=== PATIENT | female | born 1980 | race Caucasian/White ===

== ENCOUNTER 2018-09-28 21:45 | Inpatient (IN) | payer BC ==
[~2018-09-28] VITALS: Ht 157.5 cm; Wt 81.6 kg
--- NOTE | 2018-09-28 21:45 | NUR ---
2145 - ER at bedside examining patient.
--- NOTE | 2018-09-28 21:45 | NUR ---
2145 - Patient to ER bed 8 to gown for evaluation. Side rails up. C/o epigastric pain that came on suddenly, while making dinner, radiates up. Dull. 01/02. A&OX4, appears anxious, resp even. Speaking in full, clear sentences
[2018-09-28 21:51] VITALS: BP_SYST 131
[2018-09-28] MEDS ORDERED: MAG HYDROX/AL HYDROX/SIMETH 30 ML, BELLADONNA ALKALOIDS/PHENOBARB 10 ML, LIDOCAINE VISC... PO ONE ×3 (22:00)
[2018-09-28 22:07] LABS: BASOPHILS # (AUTO) 0.1 K/uL (0.0-0.2); BASOPHILS % (AUTO) 0.7 % (0.0-2.0); EOSINOPHILS # (AUTO) 0.4 K/uL (0.0-0.4); EOSINOPHILS % (AUTO) 3.9 % (0.0-4.0); HEMATOCRIT 38.4 % (36-48); HEMOGLOBIN 12.7 g/dL (12.0-16.0); LYMPHOCYTES # (AUTO) 4.5 K/uL (1.0-5.5); LYMPHOCYTES % (AUTO) 46.7 % (20.5-51.5); MEAN CORPUSCULAR HEMOGLOBIN 28 pg (27-31); MEAN CORPUSCULAR HGB CONC 33 % (32-36); MEAN CORPUSCULAR VOLUME 85 fL (79.0-98.0); MONOCYTES # (AUTO) 0.6 K/uL (0.0-1.0); MONOCYTES % (AUTO) 6.7 % (1.7-9.3); NEUTROPHILS # (AUTO) 4.1 K/uL (1.8-7.7); PLATELET COUNT (AUTO) 396 K/uL (130-430); RED BLOOD CELL COUNT(AUTO) 4.55 MIL/uL (4.2-6.2); RED CELL DISTRIBUTION WIDTH 13.1 % (9.0-15.0); WHITE BLOOD COUNT (AUTO) 9.7 K/uL (4.8-10.8)
[2018-09-28] MEDS ORDERED: MORPHINE 4 MG/ML INJ. SYRINGE IVP ONE (22:15)
--- NOTE | 2018-09-28 22:30 | NUR ---
2230 - pt reports pain decreased slightly. Will be medicated w/ ativan. awaiting results.
[2018-09-28 22:34] LABS: ANION GAP 8 (5-15); CALCIUM 8.7 mg/dL (8.4-11.0); CHLORIDE 105 mmol/L (98-107); CREATININE 0.82 mg/dL (0.55-1.30); GLUCOSE 114 mg/dL (70-99); POTASSIUM 3.3 mmol/L (3.5-5.1); SODIUM SERUM 138 mmol/L (136-145); UREA NITROGEN, BLOOD 13 mg/dL (8-21)
[2018-09-28 22:41] LABS: GFR AFRICAN AMERICAN 100 mL/min (>90)
[2018-09-28 22:45] LABS: ALANINE AMINOTRANSFERASE 22 U/L (12-78); ALBUMIN 3.4 g/dL (3.4-4.8); ASPARTATE AMINOTRANSFERASE 20 U/L (10-37)
[2018-09-28] MEDS ORDERED: LORazepam 1 MG TABLET PO ONE (22:45)
[2018-09-28 22:51] LABS: LIPASE 8764 U/L (73-393)
[2018-09-28 22:59] LABS: TOTAL BILIRUBIN < 0.1 mg/dL (0.0-1.0)
[2018-09-28] MEDS ORDERED: NACL 0.9% 1,000 ML IV ONE (23:00)
[2018-09-28] MEDS ORDERED: PIPERACILLIN/TAZO 3.375 GM in NS 50 ML IV ONE (23:00)
--- NOTE | 2018-09-28 23:09 | NUR ---
2309 - IV established, blood cultures and lactic drawn, IV fluids started. Pt reports feeling much better after Ativan PO
[2018-09-28] MEDS ORDERED: PIPERACILLIN/TAZOBACTAM 3.375 GM/VIAL (ZOSYN) IV ONE (23:28)
--- NOTE | 2018-09-28 23:40 | NUR ---
2340 - US at bedside
[2018-09-28 23:50] LABS: BILIRUBIN,URINE NEGATIVE (NEGATIVE); BLOOD, URINE NEGATIVE (NEGATIVE); CLARITY/URINE CLEAR (CLEAR); COLOR,URINE YELLOW (YELLOW); GLUCOSE,URINE NEGATIVE (NEGATIVE); KETONES,URINE NEGATIVE (NEGATIVE); LEUKOCYTE ESTERASE ,URINE TRACE (NEGATIVE); NITRITE, URINE NEGATIVE (NEGATIVE); PH,URINE 6.5 (5.0-8.0); PROTEIN URINE NEGATIVE (NEGATIVE)
[2018-09-29 00:04] LABS: BACTERIA,URINE MODERATE /HPF (None Seen); RBC,URINE 0-3 /HPF (0-3)
[2018-09-29] MEDS ORDERED: SERT25TA PO (00:20)
[2018-09-29] MEDS ORDERED: ONDANSETRON HCL 4 MG/2 ML VIAL IVP PRN (00:30)
[2018-09-29] MEDS ORDERED: MORPHINE 4 MG/ML INJ. SYRINGE IVP PRN ×2 (00:30→07:45)
[2018-09-29] MEDS ORDERED: MORPHINE 2 MG/ML INJ. SYRINGE IVP PRN (00:30)
[2018-09-29] MEDS ORDERED: D5NS 1,000 ML IV ONE (00:30)
--- NOTE | 2018-09-29 00:40 | NUR ---
0040 - Patient will be admitted to care of VIRGILIO Melara. Admitted to med/surg unit. Will go to room 135. Belongings list completed. Summary report printed. Report given over phone to VIRGILIO Melara.
--- NOTE | 2018-09-29 00:58 | NUR ---
ADMISSION NOTE Received patient from ER via gurney. Patient admitted with diagnosis of Gallstones, Pancreatitis. Patient is awake, alert, oriented X . Patient oriented to hospital room, call light, toileting, pain management and safety-teach back done. Patient informed that will be nurse and that their room number is . Personal belongings checked and Belongings List documented. Call light within reach. Addendum: 09/29/18 at 0129 by Harris Cunha RN Patient informed that VIRGILIO Starks will be primary nurse and that their room number is [id number]
[2018-09-29 01:02] VITALS: BP_SYST 114
--- NOTE | 2018-09-29 01:15 | NUR ---
PHYSICAL ASSESSMENT DONE. IVF INITIATED. DENIES PAIN AND SOB THIS TIME.
--- NOTE | 2018-09-29 03:00 | NUR ---
ROUNDS: PATIENT SLEEPING SOUNDLY WITH SNORE THIS TIME. CALL LIGHT WITHIN REACH.
--- NOTE | 2018-09-29 05:38 | NUR ---
CONSULT: CONSULT CALLED FOR DR. WERNER I SPOKE WITH JACKIE AKERS REASON FOR THE CONSULT: GALLSTONE/ PANCREATITIS REQUESTING CONSULT: DR. GARDUNO
--- NOTE | 2018-09-29 05:40 | NUR ---
surgical consult: DR. WERNER ,CALLED BACK. REPORTED PATIENT CURRENT CONDITIONS.
--- NOTE | 2018-09-29 07:20 | NUR ---
PAGED PAGED ARMANDO GODWIN AT [phone] SPOKE WITH ITALIA.
--- NOTE | 2018-09-29 07:25 | NUR ---
CALLED DR. GARDUNO TO CLARIFY MORPHINE ORDERS. WITH ORDERS.
--- NOTE | 2018-09-29 07:30 | NUR ---
CLOSING: SLEPT AT LONG INTERVALS. FELT PAIN THIS AM. MEDICATED WITH MORPHINE 2MG IV. VOIDED FREELY. IVF INFUSING AT 150ML/HR. .NO ACUTE DISTRESS.
[2018-09-29 08:00] VITALS: BP_SYST 114
--- NOTE | 2018-09-29 08:00 | NUR ---
initial notes rec patient asleep but arousable to stimuli. ivf infusing well , no infiltration noted. bed to the lowest position . bed to the lowest position and side rails up and locked. call light within reached and knows when to call for assistance.
[2018-09-29] MEDS: D5NS 1,000 ML IV SCH ×3 (09:39→21:35)
--- NOTE | 2018-09-29 10:00 | NUR ---
rounds sleeping at intervals. no sob noted. call light within reached.
[2018-09-29 11:18] LABS: CALCIUM 7.8 mg/dL (8.4-11.0); CREATININE 0.62 mg/dL (0.55-1.30); POTASSIUM 3.9 mmol/L (3.5-5.1)
[2018-09-29 11:25] LABS: TOTAL BILIRUBIN 0.3 mg/dL (0.0-1.0)
[2018-09-29] MEDS: MORPHINE 4 MG/ML INJ. SYRINGE IVP PRN (12:40)
--- NOTE | 2018-09-29 14:00 | NUR ---
rounds asleep when rounds made. dr galeas callded and informed re lipase.
--- NOTE | 2018-09-29 16:00 | NUR ---
rounds pt has episode of vomiting after eating clear liquids.
[2018-09-29 16:42] VITALS: BP_SYST 109
--- NOTE | 2018-09-29 18:45 | NUR ---
closing notes seen by dr galeas at bedside and talked with family. no sob noted.
[2018-09-29 19:10] VITALS: BP_SYST 110
--- NOTE | 2018-09-29 19:10 | NUR ---
OPENING NOTE RECEIVED ENDORSEMENT REPORT FROM DAY NURSE PARISA AT BEDSIDE. PT AOX4. NO SOB NOTED. NO DISTRESS NOTED. CHEST RISE EVEN AND UNLABORED. FAMILY AT BEDSIDE. NO S/S OF PAIN NOTED. PT DENIES PAIN AT THIS TIME. IV ON RIGHT AC 20G. IV CLEAN, DRY, PATENT AND INTACT. IVF INFUSING AT ORDERED RATE. ORIENTED PT TO HOSPITAL ROOM AND HOW TO USE ROOM PHONE AND CALL LIGHT TO CALL FOR ASSISTANCE. PT VERBALIZED UNDERSTANDING. SAFETY MEASURES IN PLACE. CALL LIGHT/ROOM PHONE WITHIN REACH, BED ALARM ON, BED WHEELS LOCKED, SIDE RAILS UP X2, BEDSIDE TABLE WITHIN REACH. NO OTHER NEEDS AT THIS TIME. WILL CONTINUE TO MONITOR PT AND CONTINUE PT'S POC.
--- NOTE | 2018-09-29 20:10 | NUR ---
RN ROUNDS PT RESTING IN BED WITH EYES OPENED. NO SOB NOTED. NO DISTRESS NOTED. CHEST RISE EVEN AND UNLABORED. NO S/S OF PAIN NOTED. PT DENIES PAIN AT THIS TIME. IVF INFUSING AT ORDERED RATE. SAFETY MEASURES IN PLACE. NO OTHER NEEDS AT THIS TIME. WILL CONTINUE TO MONITOR PT AND CONTINUE PT'S POC.
[2018-09-29] MEDS: cefTRIAXone 1 GM in D5W 50 ML IV SCH (21:35)
[2018-09-29] MEDS ORDERED: cefTRIAXone 1 GM IVPB PREMIX 50 ML IV ONE (21:38)
--- NOTE | 2018-09-29 21:45 | NUR ---
RN ROUNDS PT RESTING IN BED. NO SOB NOTED. NO DISTRESS NOTED. CHEST RISE EVEN AND UNLABORED. NO S/S OF PAIN NOTED. PT DENIES PAIN AT THIS TIME. IVF INFUSING AT ORDERED RATE. SCHEDULED MEDICATIONS ADMINISTERED ORDERED. NO OTHER NEEDS AT THIS TIME. SAFETY MEASURES IN PLACE. WILL CONTINUE TO MONITOR PT AND CONTINUE PT'S POC.
--- NOTE | 2018-09-29 23:35 | NUR ---
RN ROUNDS PT RESTING IN BED WITH EYES CLOSED. NO SOB NOTED. NO DISTRESS NOTED. CHEST RISE EVEN AND UNLABORED. NO S/S OF PAIN NOTED. SAFETY MEASURES IN PLACE. WILL CONTINUE TO MONITOR PT AND CONTINUE PT'S POC.
[2018-09-30] VITALS (9 sets, daily range): BP systolic 102–125
[2018-09-30] MEDS: D5NS 1,000 ML IV SCH ×3 (04:29→17:43)
--- NOTE | 2018-09-30 06:30 | NUR ---
CLOSING NOTE PT RESTING IN BED COMFORTABLY. NO SOB NOTED. NO DISTRESS NOTED. CHEST RISE EVEN AND UNLABORED. NO S/S OF PAIN NOTED AT THIS TIME. IVF INFUSING AT ORDERED RATE. PT'S PAIN MANAGED THROUGHOUT SHIFT. ALL NEEDS MET THROUGHOUT SHIFT. SAFETY MEASURES IN PLACE THROUGHOUT SHIFT. CALL LIGHT/ROOM PHONE WITHIN REACH, BED ALARM ON, BED WHEELS LOCKED, SIDE RAILS UP X2, BEDSIDE TABLE WITHIN REACH. NO NEEDS AT THIS TIME. WILL ENDORSE PT REPORT TO DAY NURSE AT BEDSIDE.
[2018-09-30 06:33] LABS: BASOPHILS % (AUTO) 0.6 % (0.0-2.0); EOSINOPHILS # (AUTO) 0.2 K/uL (0.0-0.4); EOSINOPHILS % (AUTO) 3.1 % (0.0-4.0); HEMATOCRIT 34.4 % (36-48); HEMOGLOBIN 11.4 g/dL (12.0-16.0); LYMPHOCYTES # (AUTO) 2.4 K/uL (1.0-5.5); LYMPHOCYTES % (AUTO) 30.6 % (20.5-51.5); MEAN CORPUSCULAR HEMOGLOBIN 28 pg (27-31); MEAN CORPUSCULAR HGB CONC 33 % (32-36); MEAN CORPUSCULAR VOLUME 85 fL (79.0-98.0); MONOCYTES # (AUTO) 0.5 K/uL (0.0-1.0); NEUTROPHILS # (AUTO) 4.5 K/uL (1.8-7.7); NEUTROPHILS % (AUTO) 58.7 % (40.0-70.0); PLATELET COUNT (AUTO) 315 K/uL (130-430); RED BLOOD CELL COUNT(AUTO) 4.06 MIL/uL (4.2-6.2); RED CELL DISTRIBUTION WIDTH 13.5 % (9.0-15.0); WHITE BLOOD COUNT (AUTO) 7.7 K/uL (4.8-10.8)
[2018-09-30 07:00] LABS: ALBUMIN 2.6 g/dL (3.4-4.8); CALCIUM 7.9 mg/dL (8.4-11.0); CREATININE 0.59 mg/dL (0.55-1.30); POTASSIUM 3.7 mmol/L (3.5-5.1); TOTAL BILIRUBIN 0.3 mg/dL (0.0-1.0)
--- NOTE | 2018-09-30 07:25 | NUR ---
AM rounds Patient resting in bed A/O x 4, No SOB, no complaints of pain. Lung sounds clear. Patient in stable condition at this time. SD Addendum: 09/30/18 at 0955 by Bakari Villegas RN Disregard note, saved in error
--- NOTE | 2018-09-30 07:25 | NUR ---
AM rounds Patient resting in bed A/O x 4, No SOB, no complaints of pain. Lung sounds clear. Patient in stable condition at this time. Safety prev Addendum: 09/30/18 at 0955 by Bakari Villegas RN Disregard note, saved in error
--- NOTE | 2018-09-30 07:25 | NUR ---
AM rounds Patient resting in bed A/O x 4, No SOB, no complaints of pain. Lung sounds clear. Patient in stable condition at this time. IV patent and intact, Fluids running per MD order, no signs of infiltration. Safety precautions in place, call light within reach, side rail x2, wheels locked. No needs at this time, will continue to monitor.
--- NOTE | 2018-09-30 07:45 | NUR ---
Spoke to Dr. Burgos Spoke to Dr. Burgos, made aware of lipase results. Orders received regarding diet, orders to be entered by RN.
--- NOTE | 2018-09-30 12:00 | NUR ---
Rounds Patient resting in bed, no SOB, no complaints of pain. IV in place, and infusing as ordered, no adverse effects noted. Patient NPO as ordered.
--- NOTE | 2018-09-30 16:36 | NUR ---
Rounds Patient sitting up in bed, no complaints of pain, no SOB. IV patent, and infusing fluids as ordered. No adverse effects noted. Patient resting comfortably in bed. Call light within reach. Will continue to monitor
--- NOTE | 2018-09-30 18:41 | NUR ---
Closing notes Patient resting in bed,No SOB, no complaints of pain.IV patent and intact, Fluids running per MD order, no signs of infiltration. Safety precautions in place, call light within reach, side rail x2, wheels locked. All needs met at thus time. Patient in stable condition.
[2018-09-30] MEDS ORDERED: ONDANSETRON HCL 4 MG/2 ML VIAL IVP PRN (18:45)
[2018-09-30] MEDS ORDERED: KETOROLAC TROMETHAMINE 30 MG VIAL IVP PRN (18:45)
[2018-09-30] MEDS ORDERED: fentaNYL CITRATE/PF 100 MCG/2 ML AMP IVP PRN ×2 (18:45)
--- NOTE | 2018-09-30 19:35 | NUR ---
Initial Note Received patient awake, alert and oriented. Family at the bedside. No SOB noted. Denies any pain or n/v at this time. IVF infusing. NPO for surgery today at 2100. Skin intact and no peripheral edema noted. Self reposition. Care and monitoring will be provided per protocol. Call light within reach. Bed alarm off per patient's request. Bed at lowest position at all times. Needs attended. Kept warm and comfortable. Patient aware of the procedure and she has questions for Dr. Burgos before she signs the surgery consent. VS stable.
--- NOTE | 2018-09-30 20:18 | NUR ---
Transfer to OR Patient was transferred to OR and approached by Dr. Burgos. Made MD aware of the latest VS and last IV antibiotic. Scheduled IV antibiotic at 2100 was in OR already. Patient is not in distress at this time. Endorsed to [employer]. Saline lock.
[2018-09-30] MEDS ORDERED: IOHEXOL 50 ML IV ONE (20:52)
[2018-09-30] MEDS: cefTRIAXone 1 GM in D5W 50 ML IV SCH (21:00)
[2018-09-30] MEDS ORDERED: fentaNYL CITRATE/PF 100 MCG/2 ML AMP ONE (21:45)
[2018-09-30] MEDS ORDERED: ROCURONIUM BROMIDE 10 MG/ML (ZEMURON) ONE (21:45)
[2018-09-30] MEDS ORDERED: MIDAZOLAM HCL 5 MG/ML VIAL (VERSED) IV ONE (21:45)
[2018-09-30] MEDS ORDERED: ONDANSETRON HCL 4 MG/2 ML VIAL ONE (21:45)
[2018-09-30] MEDS ORDERED: LR 1,000 ML IV.SOLN IV ONE (21:45)
[2018-09-30] MEDS ORDERED: GLYCOPYRROLATE 0.2 MG/ML VIAL ONE (21:45)
[2018-09-30] MEDS ORDERED: SEVOFLURANE 15 MIN GAS INH ONE (21:45)
[2018-09-30] MEDS ORDERED: PROPOFOL 200MG/ 20ML VIAL (DIPRIVAN) IV ONE (21:45)
[2018-09-30] MEDS ORDERED: HYDROcodone/ACETAMIN 5-325 MG TAB (NORCO/ VICODIN) PO PRN (21:45)
[2018-09-30] MEDS ORDERED: KETOROLAC TROMETHAMINE 30 MG VIAL ONE (21:45)
[2018-09-30] MEDS ORDERED: NEOSTIGMINE METHYLSULFATE 1 MG/ML, 10 ML VIAL ONE (21:45)
--- NOTE | 2018-09-30 22:20 | NUR ---
Transfer to [place] Patient is transferred from PACU and back to her room. Patient's son at the bedside. Patient is arousable, alert, oriented and feels tired. VS stable. On O2 at 3L/min via NC wit 96%. SCDs o BLE. Lap harjit sites x4 dressings are CDI. Encouraged to use Incentive spirometer and educated patient's son as well. Will continue to monitor. Post op VS will be taken as well. Clear liquid diet.
--- NOTE | 2018-09-30 23:00 | NUR ---
VS Stable 15 mins x3 Patient sleeping but arousable. VS stable 15 minutes x3 after arrival to the unit. Encouraged to deep breath and cough. Patient used Incentive spirometer and able to reach 1000ml at this time. Encouraged to use it more often. Lap sites dressings x4 are CDI.
[2018-10-01] VITALS (10 sets, daily range): BP systolic 100–125
--- NOTE | 2018-10-01 00:40 | NUR ---
Pain Med/VS stable 30 mins x 3 Patient awake and alert. Complain of incisional pain, medicated for pain as requested. Encouraged to deep breath and cough. Used incentive spirometer several times. Repositioned. Kept warm and comfortable.
[2018-10-01] MEDS: D5NS 1,000 ML IV SCH ×5 (03:21→18:18)
--- NOTE | 2018-10-01 03:30 | NUR ---
Ambulates/VS stable 1 hr x 3 Patient awake and alert. Ambulated to the bathroom and back to bed with supervision and steady gait . Lap sites dressings are CDI. Feels pain only upon movement. Given juice, tolerated well. Denies any SOB or n/v a this time. IVF infusing. SCDs. PAtient burped several times and hasn't pass gas yet. Kept warm and comfortable.
--- NOTE | 2018-10-01 06:31 | NUR ---
End Note Afebrile. VS stable. Medicated for pain once after the procedure. No complain of SOB or n/v throughtout the shift. Able to ambulate to the bathroom once without any difficulty. Lap sites x 4 dressings are CDI, no bleeding noted. Tolerateed juice and water. Encouraged to use the Incentive spirometer at 1000ml and to cough and deep breath. IVF infusing. SCDs. AM labs today. Care and monitoring provided per protocol. Call light within reach. Bed alarm off per patient's request. Bed at lowest position at all times. Needs attended. Kept warm and comfortable.
[2018-10-01 06:44] LABS: CALCIUM 7.7 mg/dL (8.4-11.0); CREATININE 0.73 mg/dL (0.55-1.30); POTASSIUM 3.4 mmol/L (3.5-5.1)
[2018-10-01 06:58] LABS: ALBUMIN 2.7 g/dL (3.4-4.8); TOTAL BILIRUBIN 0.2 mg/dL (0.0-1.0)
--- NOTE | 2018-10-01 07:45 | NUR ---
am rounds: Oriented x4. Voided with 400 ml of yellow urine, no sediments noted. Complained of gas pain the mid upper abdomen. Patient is able to burp. Instructed patient to increase ambulation to help with the gas pain. Sitting up on the chair for breakfast, encouraged to continue using the incentive spirometer.
--- NOTE | 2018-10-01 08:45 | NUR ---
Activity: Ambulated in the hallway ([facility]) with steady gait. Denied dizziness, nor nausea. Patient made aware that ambulation will help with the gas pain.
[2018-10-01] MEDS ORDERED: SERTRALINE HCL 50 MG TABLET PO SCH (09:00)
[2018-10-01] MEDS: MORPHINE 4 MG/ML INJ. SYRINGE IVP PRN (09:24)
--- NOTE | 2018-10-01 11:17 | NUR ---
MD communication: Spoke with Dr. Burgos, updated on patient's status. Will advance diet as tolerated.
--- NOTE | 2018-10-01 13:30 | NUR ---
Rounds Patient sitting up in bed at this time. No complaints of pain. Stated she tolerated lunch well, no cough, no nausea, no vomiting. Educated teaching on importance of incentive spirometer and walking. Patient verbalized understanding, and returned demonstration.
--- NOTE | 2018-10-01 15:20 | NUR ---
Rounds: Pain is 3/10, tolerable for the patient. encouraged to continue ambulating in the hallway and continue using the incentive spirometer.
--- NOTE | 2018-10-01 17:50 | NUR ---
Ambulating Supervised patient to ambulate from [facility] to [facility]. No complaints of pain, no dizziness. Educated patient to use the incentive spirometer, patient verbalized understanding and return demonstrated.
--- NOTE | 2018-10-01 18:27 | NUR ---
Closing note Patient sitting up in bed, eating dinner, tolerating well at this time, no nausea, no vomiting. Reminded patient to continue to use the inceptive spirometer and ambulate, patient verbalized understanding. No complaints of pain. Call light within reach, All need met at this time.
--- NOTE | 2018-10-01 19:00 | NUR ---
Diet: Tolerated soft diet for dinner, no abdominal pain. Wants to go home. Paged Dr. Burgos, he'll be here to see the patient.
--- NOTE | 2018-10-01 19:30 | NUR ---
INITIAL NOTES: PT IS ALERT AND ORIENTED ; NOT IN ANY ACUTE DISTRESS; PER REPORT DR WERNER WILL MAKE ROUNDS IN 30 MIN AFTER THAT PT CAN BE DCD ; ASSESSMENT NONE , PT IS COMFORTABLE ; PT DENIED ANY PAIN OR SOB OR NAUSEA ; PT HAS I.S AT BED SIDE ; CALL [place] IN REACH ; ENCOURAGED PT TO CALL IF SHE NEEDS ANY HELP ; WILL CONTINUE TO MONITOR PT .
[2018-10-01] MEDS ORDERED: HYDR-4272 PO (19:45)
--- NOTE | 2018-10-01 20:00 | NUR ---
MD ROUNDS: DR WERNER MADE ROUNDS, MD OPENED THE DRESSING AND STERI STIP IS IN PLACE , DRESSING TO THE UMBILICAL SITE NOTED WITH DRY BLOOD , MD PLACED A BANDAGE ON IT ALL OTHER THREE INCISION SITE IS OPEN ; BUT STERI STRIPS IS ON ; MD GAVE DETAILED INSTRUCTION ON SHOWER , PAIN MANAGEMENT AND FOLLOW UP , ALSO MD INFORMED PT NOT TO LIFT ANY WEIGH MORE THAT 10 LBS ; MD ORDERED TO DC PT TONIGHT AFTER THE ROCEPHIN IVPB .
[2018-10-01] MEDS: cefTRIAXone 1 GM in D5W 50 ML IV SCH (20:15)
--- NOTE | 2018-10-01 20:20 | NUR ---
MEDICATION : DUE IV ANTIBIOTIC ROCEPHIN IS INFUSING WELL ; PT NOTIFIED FAMILY ALREADY TO PICK HER UP
--- NOTE | 2018-10-01 21:00 | NUR ---
DC INSTRUCTION: Patient given medication reconciliation form and D/C instructions. Exit Care provided. Patient verbalized understanding. discussed with patient the results and treatment provided. PT is waiting for her ride .
--- NOTE | 2018-10-01 21:40 | NUR ---
DISCHARGE: Patient given medication reconciliation form and D/C instructions. Exit Care provided. Patient verbalized understanding. MD discussed with patient the results and treatment provided. Ambulatory with steady gait for discharge to home. Patient in stable condition, ID band removed. IV catheter removed, intact and dressing applied, no active bleeding. Patient educated on pain management. All belongings sent with patient. DR WERNER told pt that he will do [facility] prescription directly to the pharmacy . since pt stated she is not going to get the medication tonight , she is fine . informed pt if she cannot pickup her medication from pharmacy please contact DR ROBINS office in am ,
== END 2018-10-01 21:40 | disposition home or self-care (01) | DRG 417 ==
LOC: SED 21:45 → SMU 09-29 00:23
PROVIDERS: ADMIT Internal Medicine Hospice and Palliative Medicine; ATTEND Internal Medicine Hospice and Palliative Medicine
PROC: BF131ZZ Fluoroscopy of Gallbladder and Bile Ducts using Low Osmolar Contrast (ICD-10-PCS; 2018-09-30)
PROC: 0FT44ZZ Resection of Gallbladder, Percutaneous Endoscopic Approach (ICD-10-PCS; principal; 2018-09-30 19:00)
DX: K80.10 Calculus of gallbladder with chronic cholecystitis without obstruction (principal); K85.10 Biliary acute pancreatitis without necrosis or infection; E87.6 Hypokalemia; Z79.899 Other long term (current) drug therapy; Z98.51 Tubal ligation status
CPT/HCPCS: 36415; 71045; 76000; 76700-TC; 80053; 80061; 81000-TC; 82150-TC; 83605; 83690-TC; 84484; 85025; 87040-TC; 87081; 87086; 88302; 88304; 93005; 96365; 99285; C1727; J0696; J1885; J2001; J2250; J2270; J2405; J2543; J2704; J2710; J3010; J3490; J7042; J7060; J7120; Q9967

== ENCOUNTER 2021-04-09 11:43 | Emergency (ER) | payer BC ==
[~2021-04-09] VITALS: Ht 160 cm; Wt 90.7 kg
[~2021-04-09 11:43] MED LIST: HYDR-4272 PO; SERT25TA PO
--- NOTE | 2021-04-09 11:45 | NUR ---
Placed in room 2 . Placed on school bus monitor, blood pressure machine and pulse oximeter. To gown for exam. Side rails up. Report given to Terra.
[2021-04-09 11:50] VITALS: BP_SYST 157
--- NOTE | 2021-04-09 12:11 | NUR ---
Patient awake, alert and oriented to person, place, time and situation. Reporting chest pain across chest and down left side 01/02. EKG done upon triage. No SOB reported. Reports no PMH and NKDA. Will continue to monitor.
--- NOTE | 2021-04-09 13:36 | NUR ---
Pt resting in bed; no acute distress noted. VSS; awaiting further orders. Will continue to monitor.
--- NOTE | 2021-04-09 13:50 | NUR ---
Dr Alexander at bedside to evaluate patient.
[2021-04-09] MEDS ORDERED: ONDANSETRON HCL 4 MG/2 ML VIAL IVP ONE (14:00)
[2021-04-09] MEDS ORDERED: MAG HYDROX/AL HYDROX/SIMETH 30 ML, DICYCLOMINE HCL 20 MG, LIDOCAINE VISCOUS 2% 15ML (PO... PO ONE ×3 (14:00)
--- NOTE | 2021-04-09 14:10 | NUR ---
CXR done at bedside
[2021-04-09 14:30] LABS: BASOPHILS # (AUTO) 0.1 K/uL (0.0-0.2); BASOPHILS % (AUTO) 1.2 % (0.0-2.0); EOSINOPHILS # (AUTO) 0.1 K/uL (0.0-0.4); EOSINOPHILS % (AUTO) 1.1 % (0.0-4.0); HEMATOCRIT 33.5 % (36-48); HEMOGLOBIN 10.8 g/dL (12.0-16.0); LYMPHOCYTES # (AUTO) 1.8 K/uL (1.0-5.5); LYMPHOCYTES % (AUTO) 15.7 % (20.5-51.5); MEAN CORPUSCULAR HEMOGLOBIN 23 pg (27-31); MEAN CORPUSCULAR HGB CONC 32 % (32-36); MEAN CORPUSCULAR VOLUME 70 fL (79.0-98.0); MONOCYTES # (AUTO) 0.8 K/uL (0.0-1.0); MONOCYTES % (AUTO) 7.2 % (1.7-9.3); NEUTROPHILS # (AUTO) 8.5 K/uL (1.8-7.7); NEUTROPHILS % (AUTO) 74.8 % (40.0-70.0); PLATELET COUNT (AUTO) 332 K/uL (130-430); RED BLOOD CELL COUNT(AUTO) 4.78 MIL/uL (4.2-6.2); RED CELL DISTRIBUTION WIDTH 16.1 % (9.0-15.0); WHITE BLOOD COUNT (AUTO) 11.3 K/uL (4.8-10.8)
[2021-04-09 14:47] LABS: CALCIUM 9.2 mg/dL (8.4-11.0); CREATININE 0.65 mg/dL (0.55-1.30); POTASSIUM 3.9 mmol/L (3.5-5.1)
[2021-04-09 14:52] LABS: ALBUMIN 3.7 g/dL (3.4-4.8); TOTAL BILIRUBIN 0.3 mg/dL (0.0-1.0)
--- NOTE | 2021-04-09 17:23 | NUR ---
Per Dr Santo, no 3rd EKG needed. 2 EKG's already done. Spoke with lab to confirm second troponin was done. Pt awaiting further dispo.
--- NOTE | 2021-04-09 18:27 | NUR ---
Dr Santo aware patient's second trop negative; awaiting discharge.
[2021-04-09] MEDS ORDERED: FAMO-132 PO (18:39)
--- NOTE | 2021-04-09 19:05 | NUR ---
Report given to Candelario POOLE.
[2021-04-09 19:11] LABS: HCG,QUANTITATIVE 0 mIU/ML (0-6); LIPASE 51 U/L (73-393)
--- NOTE | 2021-04-09 19:31 | NUR ---
REPEAT EKG DONE AND GIVEN TO DR CROCKER FOR INTERPRETATION
--- NOTE | 2021-04-09 19:36 | NUR ---
Patient given written and verbal discharge instructions and verbalizes understanding. ER MD discussed with patient the results and treatment provided. Patient in stable condition. ID arm band removed. IV catheter removed intact and dressing applied, no active bleeding. Rx of pepcid given. Patient educated on pain management and to follow up with PMD. Pain Scale 2/10. Opportunity for questions provided and answered. Medication side effect fact sheet provided.
[2021-04-09 19:38] VITALS: BP_SYST 146
== END 2021-04-09 19:38 | disposition home or self-care (01) ==
LOC: SED 11:43
DX: R10.13 Epigastric pain (principal); R07.89 Other chest pain; Z79.899 Other long term (current) drug therapy
CPT/HCPCS: 36415; 71045; 80053; 83690; 84484; 84702; 85025; 85379; 93005; 96374; 99285; J2001; J2405